=== PATIENT | male | born 1995 | race Caucasian/White ===

== ENCOUNTER 2017-05-27 16:52 | Emergency (ER) | payer OTHER ==
[~2017-05-27] VITALS: Ht 185.4 cm; Wt 74.8 kg
[2017-05-27 16:55] VITALS: TEMP 37.1; Ht 185.4 cm; Wt 74.8 kg
[2017-05-27] MEDS ORDERED: XYLOCAINE 1%/SOD BICARB 20 ML VIAL INFIL ONE (17:15)
[2017-05-27] MEDS ORDERED: CHLORHEXIDINE GLUCONATE 0.12% 480 ML MT STA (18:12)
--- NOTE | 2017-05-27 18:29 | EMERGENCY ROOM VISIT NOTE ---
ED Visit Note First contact with patient: 16:58 CHIEF COMPLAINT: Tongue laceration HISTORY OF PRESENT ILLNESS: This 21 yo male patient presents to the emergency department approximately 1 hour after biting his tongue, causing a deep laceration on the left side of the tongue. The patient states he was at wrestling practice, when he accidentally bit his tongue. He denies any dental injury. He was not struck in the face. He states he was simply wrestling, and bit down, which is something he does often while playing sports. The bleeding has not stopped. Denies weakness or numbness of the tongue. The patient rates the pain as minimal and 4/10. The patient denies any other injuries. The patient 's Tetanus shot is up to date. REVIEW OF SYSTEMS: A 6 system review of systems was completed with positives and pertinent negatives listed in the HPI. ALLERGIES: None MEDICATIONS: None PMH: None SOCIAL HISTORY: The patient lives locally with family. He denies drug, alcohol , tobacco use. PHYSICAL EXAM: Vital Signs: Reviewed Nurse's notes, vital signs stable. GENERAL : This is a 21-year-old white male, in no acute distress, well-developed, well- nourished. SKIN: There is a 4 cm long laceration on the superior aspect of the left tongue. The edges gape apart with and without traction. There is no foreign material in the wound and it looks clean. There is minimal active bleeding. No deep structures such as tendons, bones, or significant blood vessels are seen in the base of the wound. Normal strength and movement of the tongue. Capillary refill less than 2 seconds. Normal sensation to light and sharp touch. EMERGENCY DEPARTMENT COURSE: I examined the patient. Verbal consent was obtained to perform the procedure. Using sterile technique the wound was cleansed with Betadine. The area was sterilely draped. 5 ml of 1% buffered lidocaine was used to anesthetize the laceration on the tongue. Once the patient was anesthetized, the wound was copiously irrigated under pressure with sterile saline. The wound was explored and was as described above. The laceration was repaired using 12 simple interrupted 4-0 absorbable vicryl sutures with the wound edges being well approximated. The patient tolerated the procedure well. Hemostasis was achieved. The area was cleaned with sterile saline and dressed with bacitracin ointment and bandage. The patient was discharged home in good condition. I attest that I have personally reviewed the patient's current medication list. Patient was found to have normal blood pressure on screening and does not require follow-up. DIFFERENTIAL DIAGNOSIS: Tongue laceration, infection, dental fracture, and others DIAGNOSIS: Tongue laceration Current/Historical Medications No Active Prescriptions or Reported Meds Allergies Coded Allergies: No Known Allergies (Unverified , 05/27/17) Vital Signs Date Time Temp Pulse Resp B/P (MAP) Pulse Ox O2 Delivery O2 Flow Rate FiO2 05/27/17 18:52 81 16 125/72 95 Room Air 05/27/17 16:55 37.1 88 18 136/80 98 Room Air Departure Information Impression Primary Impression: Tongue laceration Dispostion Home / Self-Care Condition GOOD Prescriptions No Active Prescriptions or Reported Meds Referrals Byron Zamora M.D. (PCP) [facility] Patient Instructions ED Laceration Mouth, My [facility] Additional Instructions You were seen in the emergency department today for a tongue laceration. This was repaired with 12 absorbable sutures. These will not need to be removed, as they will absorb on their own. You should eat a soft diet for the next 3-5 days or until the wound has healed. Avoid overly hot foods. You may find that cold foods such as popsicles to soothe the discomfort from the tongue. Ibuprofen(Motrin, Advil) may be used for fever or pain. Use 600mg every six hours as needed. Take with food. Avoid using more than 2400mg in a 24 hour period. Do not use 2400mg per day for more than three consecutive days without physician direction. Prolonged inappropriate use can lead to stomach upset or ulcers. (AND/OR) Acetaminophen(Tylenol) may be used for fever or pain. Use 1000mg every six hours as needed. Avoid using more than 3000mg in a 24 hour period. Please use chlorhexidine mouthwash twice daily as directed. No wrestling until follow-up with the oral surgeon. As discussed, to recommend no wrestling at least until next week. Follow up with the oral surgeon and/or team physician for further evaluation, management, and re-check in 2-3 days. Return to the emergency department for worsening pain, swelling, redness, puslike drainage, rebleeding, opening of the wound, fever, chills, nausea, vomiting, or other concerning symptoms. Problem Qualifiers Primary Impression: Tongue laceration Encounter type: initial encounter Qualified Codes: S01.512A - Laceration without foreign body of oral cavity, initial encounter
[2017-05-27 18:52] VITALS: BP 125/72; PULSE 81; O2SAT 95
== END 2017-05-27 18:50 | disposition home or self-care (01) ==
LOC: C.EDB 16:54 → C.EDD 18:50
DX: S01.512A Laceration without foreign body of oral cavity, initial encounter (principal); X58.XXXA Exposure to other specified factors, initial encounter; Y93.72 Activity, wrestling